=== PATIENT | female | born 1975 | race Two or more races ===

== ENCOUNTER 2023-08-09 02:15 | Outpatient (CLI) | payer MEDICAID | END 2023-08-09 23:59 | disposition critical access hospital (66) | LOC: EMS 02:15 | DX: M25.512 Pain in left shoulder (principal) | CPT/HCPCS: A0425; A0429; A0999 ==

== ENCOUNTER 2023-08-09 02:35 | Emergency (ER) | payer MEDICAID ==
[2023-08-09 02:42] VITALS: BP 134/93; O2SAT 100
--- NOTE | 2023-08-09 03:02 | ED Physician Documentation ---
History of Present Illness - Stated complaint Stated Complaint: LEFT SHOULDER PAIN - Chief complaint Chief Complaint: General - History obtained from History obtained from: Patient - Additonal information Additional information: 48yF with pmh chronic shoulder pain, fibromyalgia, p/w L shoulder pain since yesterday after working out. patient had negative xrays in walk in clinic today and was told it was likely a shoulder strain and provided with shoulder sling, nsaids and muscle relaxers. she presents now because she is having significant pain not responding to aleve and muscle relaxer. denies specific injury, numbness, weakness or swelling PD PAST MEDICAL HISTORY - Past Medical History Past Medical History: No - Past Surgical History Past Surgical History: No - Allergies Allergies/Adverse Reactions: Allergies Allergy/AdvReac Type Severity Reaction Status Date / Time No Known Drug Allergies Allergy Verified 08/09/23 02:41 - Social History Does the pt smoke?: Yes Smoking Status: Current every day smoker PD ED PE NORMAL - Vitals Vital signs reviewed: Yes - General General: Alert and oriented X 3, No acute distress, Well developed/nourished - HEENT HEENT: Atraumatic, PERRL, EOMI - Neck Neck: Supple, no meningeal sign - Derm Derm: Normal color, Warm and dry - Extremities Extremities: No deformity, Other (L shoulder ttp and tender with rom. 2+ L radial pulse. normal sensation and movement LUE. ) Results - Vitals Vitals: Vital Signs - 24 hr 08/09/23 02:38 Temperature 36.5 C Heart Rate 92 Respiratory 18 Rate Blood Pressure 134/93 H O2 Saturation 100 Oxygen O2 Source Room air PD Medical Decision Making - ED course ED course: 48yF p/w acute on chronic L shoulder pain X 2 days, not responding to NSAIDs and muscle relaxer. patient was provided with one time dose of percoset and once time prescription. counseling provided about narcotic medications. return precautions given. plan to f/u with pcp for referral to physical therapy. Departure - Departure Disposition: 01 Home, Self Care Clinical Impression: Shoulder pain Condition: Stable Instructions: ED Immobilizer Shoulder Comments: You were seen in the emergency department for shoulder pain, likely related to your fibromyalgia. Please follow-up with your primary care provider and return to the emergency department if you have any new or worsening symptoms or other concerns. Forms: PCP List
[2023-08-09] MEDS: KETOROLAC 30 MG/ML VIAL IM STA (03:05)
[2023-08-09] MEDS: oxyCODONE/ACET 5/325 Prepack 4 PO STA (03:05)
== END 2023-08-09 03:25 | disposition home or self-care (01) ==
LOC: ED 02:35
DX: M25.512 Pain in left shoulder (principal); G89.29 Other chronic pain; M79.7 Fibromyalgia; F17.210 Nicotine dependence, cigarettes, uncomplicated
CPT/HCPCS: 96372; 99283

== ENCOUNTER 2023-10-31 18:05 | Outpatient (CLI) | payer MEDICAID | END 2023-10-31 23:59 | disposition left against medical advice (07) | LOC: EMS 18:05 | DX: R53.1 Weakness (principal); R42 Dizziness and giddiness; R55 Syncope and collapse ==